=== PATIENT | male | born 1995 | race Caucasian/White ===

== ENCOUNTER → 2022-03-27 15:34 | Outpatient (BNVA) | payer SELFPAY | PROVIDERS: Visit Provider Internal Medicine | DX: Z02.79 Encounter for issue of other medical certificate (principal) ==

== ENCOUNTER 2023-05-22 13:51 | Outpatient (AMB) | payer OTHER, SELFPAY ==
--- NOTE | 2023-05-22 13:54 | MHC.OFFWIV ---
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 Denies known exposure to sick contacts. Denies shortness of breath/wheezing. [facility] Social History Patient Tobacco Use Status: Never used Tobacco Review of Systems Const All systems reviewed & are unremarkable except as noted in HPI and below Physical Exam Vital Signs: Last Vital Signs Temp 98.9 F 05/22/23 14:01 Pulse 96 05/22/23 14:01 BP 118/68 05/22/23 14:01 Pulse Ox 98 05/22/23 14:01 Oxygen Delivery Method Room Air 05/22/23 14:01 Const General: cooperative and ill appearing acutely Nutritional Appearance: average body habitus Limitations: no limitations HEENT Head: Yes normal to inspection Ears: hearing grossly normal bilaterally General nose exam: Normal external nose present Face and sinus: Yes normal facial exam Mouth: Normal oral and palatal mucosa present Throat: Yes posterior oropharynx abnormal (Erythema, tonsillar hypertrophy) Neck Neck: Yes no lymphadenopathy Resp Effort & Inspection: normal respiratory effort, able to speak in complete sentences and Actively coughing Quality: productive Auscultation: clear to auscultation bilaterally Cardio Jugular venous distension: no JVD Palpation: normal PMI Rate: regular rate Rhythm: regular rhythm Skin General skin exam: no rashes or lesions noted Extrem General: Yes capillary refill normal and Yes no clubbing, cyanosis or edema Psych Appearance: grossly normal Mental Status: mental status grossly normal Speech and movement: Normal speech and movement present Results AMB Rapid Strep AMB Rapid Strep Negative Last Edit by Juhi Sims CMA on 05/22/23 14:12 Assessment & Plan Assessment & Plan (1) Upper respiratory infection: Code(s): J06.9 - Acute upper respiratory infection, unspecified Qualifiers: URI type: unspecified viral URI Qualified Code(s): J06.9 - Acute upper respiratory infection, unspecified Plan: Patient's symptoms are consistent with a viral illness. COVID/flu/RSV swab obtained in the office today. Rapid strep was negative. Will start patient on benzonatate, and albuterol inhaler p.r.n.. We reviewed indications, use, possible side effects of these. I have recommended rest, Tylenol/Motrin as needed for fever/body aches. Reviewed likely self-limiting nature of his symptoms, and if he does not improve with time and conservative measures, or if new symptoms develop/symptoms worsen, he should return to the clinic or the emergency department for further evaluation. He verbalizes understanding and agrees to plan. (2) Nausea and vomiting: Code(s): R11.2 - Nausea with vomiting, unspecified Qualifiers: Vomiting type: unspecified Qualified Code(s): R11.2 - Nausea with vomiting, unspecified Plan: Advised small sips of water, advancing diet as tolerated. Prescribed ondansetron, and reviewed indications and use of this. Orders: Orders AMB Rapid Strep Screen Today Z13.9 - Encounter for screening, unspecified SARS-CoV2/FLU/RSV Today J06.9 - Acute upper respiratory infection, unspecified Medications: New ondansetron HCl 4 mg PO Q8H 7 days PRN 21 tabs 0RF nausea and vomiting J06.9 - Acute upper respiratory infection, unspecified, R11.2 - Nausea with vomiting, unspecified benzonatate 100 mg PO BID 7 days PRN 14 caps 0RF cough R05.9 - Cough, unspecified albuterol sulfate 90 mcg/actuation 1 inh inhalation QID PRN 6.7 grams 0RF shortness of breath or wheezing J06.9 - Acute upper respiratory infection, unspecified Coding Level of Care Code Est Pt Level 3 (00527) Diagnoses Viral upper respiratory tract infection J06.9 URI type: unspecified viral URI Nausea and vomiting, unspecified vomiting type R11.2 Vomiting type: unspecified
[2023-05-22 14:01] VITALS: BP 118/68; PULSE 96; TEMP 37.2; O2SAT 98
== END 2023-05-22 14:24 | disposition home or self-care (01) ==
PROVIDERS: Visit Provider Nurse Practitioner Family
DX: J06.9 Acute upper respiratory infection, unspecified (principal); R11.2 Nausea with vomiting, unspecified; Z13.9 Encounter for screening, unspecified
CPT/HCPCS: 87880; 99213

== ENCOUNTER 2023-05-22 14:18 | Outpatient (REF) | payer OTHER, SELFPAY ==
[2023-05-22 17:25] LABS: Influenza A PCR NEGATIVE (Negative); Influenza B PCR NEGATIVE (Negative); Resp Syncy Virus RNA Qual PCR NEGATIVE (Negative); SARS COV2 PCR INHOUSE NEGATIVE (Negative)
== END 2023-05-22 14:19 | disposition home or self-care (01) ==
LOC: HO.LAB 14:18
PROVIDERS: Visit Provider Nurse Practitioner Family
DX: Z11.52 Encounter for screening for COVID-19 (principal); J06.9 Acute upper respiratory infection, unspecified
CPT/HCPCS: 0241U